=== PATIENT | female | born 1955 | race Hispanic/Latino ===

== ENCOUNTER 2018-04-26 02:02 | Emergency (ER) | payer MEDICARE, OTHER ==
[2018-04-26] MEDS ORDERED: CIPROFLOXACIN HCL 250 MG TABLET ONE (02:09)
== END 2018-04-26 02:37 | disposition home or self-care (01) ==
LOC: EDH 02:02
DX: Z20.811 Contact with and (suspected) exposure to meningococcus (principal)
CPT/HCPCS: 99282

== ENCOUNTER 2022-05-03 21:27 | Emergency (ER) | payer OTHER ==
[~2022-05-03] VITALS: Ht 160 cm; Wt 72.6 kg
[2022-05-03] MEDS ORDERED: SOLU-MEDROL 125MG VIAL ONE (21:43)
[2022-05-03 21:56] LABS: BASOPHILS % (AUTO) 0.7 % (0.0-5.0); EOSINOPHILS % (AUTO) 1.4 % (0.0-8.0); HEMATOCRIT 39.7 % (36-48); LYMPHOCYTES % (AUTO) 36.8 % (21.0-51.0); MEAN CORPUSCULAR HEMOGLOBIN 30.1 pg (27.0-33.0); MEAN CORPUSCULAR HGB CONC 34.3 g/dL (32.0-36.0); MEAN CORPUSCULAR VOLUME 87.8 fL (79-99); NEUTROPHILS % (AUTO) 54.8 % (40.0-77.0); PLATELET COUNT (AUTO) 232 K/uL (130-400); RED BLOOD CELL COUNT(AUTO) 4.52 MIL/uL (4.00-5.50); RED CELL DISTRIBUTION WIDTH 13.3 % (11.0-15.5); WHITE BLOOD COUNT (AUTO) 9.5 K/uL (4.8-10.8)
[2022-05-03] MEDS ORDERED: ALBUTEROL 0.083% 2.5 MG/3 ML INH IH ONE (22:00)
[2022-05-03] MEDS ORDERED: 0.9%NACL 1000ML 1,000 ML IV SCH (22:00)
[2022-05-03] MEDS ORDERED: SOLU-MEDROL 125MG VIAL IVP ONE (22:00)
[2022-05-03 22:12] LABS: ALBUMIN 3.3 g/dL (3.5-5.0); CREATININE 1.2 mg/dL (0.5-1.5); POTASSIUM 4.4 mmol/L (3.5-5.1); TOTAL PROTEIN, SERUM 6.7 g/dL (6.0-8.3)
[2022-05-04 00:28] LABS: ABG BASE EXCESS -3.2 mmol/L (-2.0-3.0); ABG HCO3 20.6 mmol/L (21.0-28.0); ABG OXYGEN SATURATION 96.8 % (95.0-99.0); ABG PCO2 33 mmHg (32-45)
[2022-05-04] MEDS ORDERED: 0.9%NACL 1000ML 1,000 ML IV ONE (01:00)
[2022-05-04] MEDS ORDERED: INSULIN HUMULIN R 100 UNIT/ML 3ML ONE (01:46)
[2022-05-04] MEDS ORDERED: INSULIN HUMULIN R 100 UNIT/ML 3ML IV ONE (02:00)
[2022-05-04] MEDS ORDERED: METF-444 PO (03:23)
[2022-05-04 03:41] VITALS: BP 145/74
== END 2022-05-04 03:43 | disposition home or self-care (01) ==
LOC: EDH 21:27
DX: E11.9 Type 2 diabetes mellitus without complications (principal); T59.811A Toxic effect of smoke, accidental (unintentional), initial encounter; Z79.84 Long term (current) use of oral hypoglycemic drugs; Y92.89 Other specified places as the place of occurrence of the external cause
CPT/HCPCS: 99285; 96374; 71045; 96375; 82947; 83036; 84484; 80053; 82803; 85025; 82010; 36415 ×2; 93005; 94640; 82435; 84132; 84295; 82948 ×4; 85018; 83605 ×3; J2930; J1815; 96372